=== PATIENT | male | born 1995 | race African-American/Black ===

== ENCOUNTER 2023-06-02 12:21 | Emergency (ER) | payer SELFPAY ==
[~2023-06-02] VITALS: Ht 182.9 cm; Wt 72.0 kg
[2023-06-02 12:27] VITALS: O2SAT 100
[2023-06-02] MEDS ORDERED: CEFTRIAXONE SODIUM 500 MG/VIAL IM ONE (13:30)
[2023-06-02] MEDS ORDERED: DOXYCYCLINE HYCLATE 100MG CAPSULE PO ONE (13:30)
[2023-06-02 13:49] LABS: CLARITY URINE TURBID (CLEAR); COLOR URINE YELLOW (YELLOW); GLUCOSE URINE NEGATIVE (NEGATIVE); KETONES URINE NEGATIVE (NEGATIVE); LEUKOCYTE ESTERASE URINE NEGATIVE (NEGATIVE); NITRITE URINE NEGATIVE (NEGATIVE); OCCULT BLOOD URINE NEGATIVE (NEGATIVE); PROTEIN URINE NEGATIVE (NEGATIVE)
[2023-06-02] MEDS ORDERED: DOXY-456 MT (14:12)
[2023-06-02 14:49] VITALS: BP 113/77; PULSE 77; RESP 20; TEMP 98.2
[2023-06-02 17:59] LABS: MUCUS URINE 3+ /lpf (NONE/TRACE)
[2023-06-02 18:00] LABS: RBC URINE 0-2 /hpf (0-2); SQUAMOUS EPITHELIAL CELL URINE RARE /lpf (RARE/1+); WBC URINE 0-2 /hpf (0-2)
[2023-06-02 18:01] LABS: BACTERIA URINE NONE SEEN
[2023-06-04 13:11] LABS: CHLAMYDIA TRACHOMATIS NAA Negative (Negative); NEISSERIA GONORRHOEAE NAA Negative (Negative)
== END 2023-06-02 14:54 | disposition home or self-care (01) ==
LOC: ER 12:55
DX: A64 Unspecified sexually transmitted disease (principal)
CPT/HCPCS: 99283; 87491; 87591; 81003; 96372; J0696